=== PATIENT | female | born 1980 | race Caucasian/White ===

== ENCOUNTER 2017-12-05 09:37 | Inpatient (IN) | payer OTHER ==
[2017-12-05] MEDS ORDERED: AMPICILLIN 2 GM/NS (PMX) 100 ML (09:56)
[2017-12-05] MEDS: AMPICILLIN 2 GM/NS (PMX) 100 ML IV (10:00)
[2017-12-05] MEDS ORDERED: MISOPROSTOL 200 MCG TAB PR (10:00)
[2017-12-05] MEDS ORDERED: LIDOCAINE 1% (MPF) 30 ML INJ INJ (10:00)
[2017-12-05] MEDS ORDERED: BUTORPHANOL 2 MG INJ IV (10:00)
[2017-12-05] MEDS ORDERED: METHYLERGONOVINE 0.2 MG INJ IM (10:00)
[2017-12-05] MEDS ORDERED: IBUPROFEN 600 MG TAB PO (10:00)
[2017-12-05] MEDS ORDERED: CARBOPROST 250 MCG INJ IM (10:00)
[2017-12-05] MEDS ORDERED: OXYTOCIN 30 UNITS/LR 500 ML IV (10:00)
[2017-12-05 10:16] LABS: ADD MAN DIFF? NO
[2017-12-05 10:18] LABS: BASOPHIL # 0.1 10^3/ul (0.0-0.1); BASOPHILS % 0.6 % (0.0-2.0); EOSINOPHILS # 0.1 10^3/ul (0.0-0.5); EOSINOPHILS % 0.7 % (0.0-7.0); HEMATOCRIT 39.1 % (37.0-47.0); HEMOGLOBIN 13.1 g/dl (12.0-16.0); LYMPHOCYTES # 1.7 10^3/ul (0.8-2.9); LYMPHOCYTES % 21.3 % (15.0-51.0); MEAN CORPUSCULAR HEMOGLOBIN 31.9 pg (29.0-33.0); MEAN CORPUSCULAR HGB CONC 33.5 g/dl (32.0-37.0); MEAN CORPUSCULAR VOLUME 95.1 fl (82.0-101.0); MEAN PLATELET VOLUME 12.2 fl (7.4-10.4); MONOCYTE # 0.6 10^3/ul (0.3-0.9); MONOCYTES % 7.8 % (0.0-11.0); NEUTROPHIL # 5.5 10^3/ul (1.6-7.5); NEUTROPHILS % 68.1 % (39.0-77.0); PLATELET COUNT 212 10^3/UL (140-415); RED BLOOD COUNT 4.11 10^6/ul (4.20-5.40); RED CELL DISTRIBUTION WIDTH 12.9 % (11.5-14.5)
[2017-12-05 10:18] LABS: WHITE BLOOD COUNT 8.1 10^3/ul (4.8-10.8)
[2017-12-05] MEDS: LACTATED RINGER'S 1,000 ML IV (10:27)
[2017-12-05] MEDS ORDERED: MINERAL OIL LIGHT 10 ML VIAL TOP (10:30)
[2017-12-05 10:47] LABS: PROTIME 13.3 Sec (11.9-14.9)
[2017-12-05 10:48] LABS: PARTIAL THROMBOPLASTIN TIME 25.4 Sec (25.0-35.0)
[2017-12-05] MEDS: OXYTOCIN 30 UNITS/LR 500 ML IV ×3 (11:04→21:54)
[2017-12-05] MEDS: AMPICILLIN 1 GM/NS (PMX) 50 ML IV (11:05)
[2017-12-05 13:11] LABS: HEPATITIS B SURFACE ANTIGEN NEGATIVE (NEGATIVE)
[2017-12-05] MEDS ORDERED: OXYCODONE/ASPIRIN (4.88/325) TAB PO ×2 (13:30)
[2017-12-05] MEDS ORDERED: ACETAMINOPHEN 325 MG TAB PO (13:30)
[2017-12-05] MEDS ORDERED: HYDROCODONE/APAP (5/325) TAB PO ×2 (13:30)
[2017-12-05] MEDS ORDERED: ONDANSETRON 4 MG INJ IV (13:30)
[2017-12-05] MEDS: IBUPROFEN 600 MG TAB PO ×3 (15:00→23:59)
[2017-12-05] MEDS: BENZOCAINE 20% 56 ML SPRAY TOP (15:01)
[2017-12-05] MEDS: LANOLIN 7 GM TUBE TOP (15:02)
[2017-12-05] MEDS: DIBUCAINE 1% 30 GM OINT PR (15:02)
[2017-12-05] MEDS: WITCH HAZEL/GLYCERIN PAD PR (15:02)
[2017-12-05 15:32] LABS: RAPID PLASMA REAGIN NONREACTIVE (NR)
[2017-12-05] MEDS: SENNA/DOCUSATE NA (8.6MG/50MG) TAB PO (21:23)
[2017-12-06] MEDS: IBUPROFEN 600 MG TAB PO ×4 (06:01→23:37)
[2017-12-06 08:17] LABS: ADD MAN DIFF? NO
[2017-12-06 08:20] LABS: WHITE BLOOD COUNT 10.1 10^3/ul (4.8-10.8)
[2017-12-06 08:20] LABS: BASOPHILS % 0.4 % (0.0-2.0); EOSINOPHILS # 0.1 10^3/ul (0.0-0.5); HEMOGLOBIN 10.9 g/dl (12.0-16.0); LYMPHOCYTES # 1.6 10^3/ul (0.8-2.9); LYMPHOCYTES % 15.7 % (15.0-51.0); MEAN CORPUSCULAR HEMOGLOBIN 32.2 pg (29.0-33.0); MEAN CORPUSCULAR HGB CONC 34.1 g/dl (32.0-37.0); MEAN CORPUSCULAR VOLUME 94.7 fl (82.0-101.0); MEAN PLATELET VOLUME 12.2 fl (7.4-10.4); MONOCYTE # 0.9 10^3/ul (0.3-0.9); MONOCYTES % 8.7 % (0.0-11.0); NEUTROPHIL # 7.4 10^3/ul (1.6-7.5); NEUTROPHILS % 73.1 % (39.0-77.0); PLATELET COUNT 159 10^3/UL (140-415); RED BLOOD COUNT 3.38 10^6/ul (4.20-5.40); RED CELL DISTRIBUTION WIDTH 12.8 % (11.5-14.5)
[2017-12-06] MEDS: SENNA/DOCUSATE NA (8.6MG/50MG) TAB PO ×2 (09:00→21:00)
[2017-12-07] MEDS: IBUPROFEN 600 MG TAB PO ×2 (06:15→13:15)
[2017-12-07] MEDS: MEASLES,MUMPS,RUBELLA VACCINE INJ SC* (09:00)
[2017-12-07] MEDS: SENNA/DOCUSATE NA (8.6MG/50MG) TAB PO (09:23)
== END 2017-12-07 13:20 | disposition home or self-care (01) | DRG 775 ==
LOC: OBT 09:37 → L-D 09:37 → OBT 09:39 → L-D 09:39 → PP1 12:52
PROVIDERS: Obstetrics & Gynecology
PROC: 10E0XZZ Delivery of Products of Conception, External Approach (ICD-10-PCS; principal; 2017-12-05)
PROC: 0HQ9XZZ Repair Perineum Skin, External Approach (ICD-10-PCS; 2017-12-05)
PROC: 4A1HXCZ Monitoring of Products of Conception, Cardiac Rate, External Approach (ICD-10-PCS; 2017-12-05)
DX: O62.3 Precipitate labor (principal); O70.0 First degree perineal laceration during delivery; Z3A.38 38 weeks gestation of pregnancy; Z37.0 Single live birth
CPT/HCPCS: 85025; 85610; 85730; 86592; 86850; 86900; 86901; 87340